=== PATIENT | female | born 1955 | race Two or more races ===

== ENCOUNTER 2023-12-16 10:06 | Outpatient (CLI) | payer OTHER ==
[~2023-12-16 10:06] MED LIST: CIPRO500 MG PO; LEVSIN0.125 MG PO; ZANTAC300 MG PO; ZOFRAN4 MG PO
== END 2023-12-16 10:14 | disposition home or self-care (01) ==
LOC: SONOGRAMA 10:06
PROVIDERS: ATTEND Pathology Anatomic Pathology & Clinical Pathology
DX: D34 Benign neoplasm of thyroid gland (principal); E04.2 Nontoxic multinodular goiter